=== PATIENT | male | born 1950 | race Caucasian/White ===

== ENCOUNTER 2023-10-19 18:35 | Emergency (ER) | payer OTHER ==
[~2023-10-19] VITALS: Ht 182.9 cm; Wt 108.9 kg
[2023-10-19 18:42] VITALS: BP_SYST 181; PULSE 94; RESP 18; TEMP 97; O2SAT 97
[2023-10-19] MEDS: HYDROcodone/ACETAMIN 10-325 MG TAB PO ONE ×2 (19:22→19:34)
[2023-10-19] MEDS: LIDOCAINE 1% 10 MG/ML, 20 ML MDV INJ ONE (19:23)
[2023-10-19] MEDS: LIDOCAINE/EPI 1% 1:100000 20 ML VIAL INJ ONE ×2 (19:24→19:25)
[2023-10-19] MEDS ORDERED: BACITRACIN 1 GM OINT TP ONE ×2 (19:31→19:34)
[2023-10-19 19:46] VITALS: BP_SYST 181; PULSE 94; RESP 18; TEMP 97; O2SAT 97
[2023-10-19] MEDS ORDERED: IBUP-1969 PO (20:02)
[2023-10-19] MEDS ORDERED: TRAM50TA2 PO (20:02)
[2023-10-19] MEDS ORDERED: CLIN-142 PO (20:02)
[2023-10-19] MEDS ORDERED: ceFAZolin SODIUM 1 GM VIAL ONE (20:12)
[2023-10-19] MEDS: ceFAZolin SODIUM 2 GM VIAL IM ONE (20:31)
== END 2023-10-19 20:30 | disposition home or self-care (01) ==
LOC: SED 18:35
DX: S81.812A Laceration without foreign body, left lower leg, initial encounter (principal); W18.39XA Other fall on same level, initial encounter; Y93.89 Activity, other specified; Y92.89 Other specified places as the place of occurrence of the external cause; Y99.8 Other external cause status
CPT/HCPCS: 99283; 12007; 96372; J0690